=== PATIENT | male | born 1975 | race Caucasian/White ===

== ENCOUNTER 2018-05-01 11:53 | Emergency (ER) | payer SELFPAY ==
[~2018-05-01] VITALS: Ht 180.3 cm; Wt 122.5 kg
[~2018-05-01 11:53] MED LIST: CEPH500 PO; CITA20 PO; CODACE30 PO; CRUTCH3 USE; NAPR500 PO; SULTRIDS PO; TRAM50 PO
[2018-05-01] MEDS ORDERED: HYDR1TAB94 PO (12:54)
[2018-05-01] MEDS ORDERED: AMIT25 PO (12:54)
[2018-05-01] MEDS ORDERED: MELO7.5 PO (12:54)
[2018-05-01] MEDS ORDERED: VARE1 PO (12:55)
[2018-05-01] MEDS ORDERED: Ocuflox5 ML LEFTEAR (13:28)
== END 2018-05-01 13:33 | disposition home or self-care (01) ==
LOC: ER 11:53
DX: H92.02 Otalgia, left ear (principal); F32.9 Major depressive disorder, single episode, unspecified; Z88.0 Allergy status to penicillin; Z88.8 Allergy status to other drugs, medicaments and biological substances; Z88.5 Allergy status to narcotic agent; Z88.1 Allergy status to other antibiotic agents; Z79.899 Other long term (current) drug therapy; Z87.891 Personal history of nicotine dependence
CPT/HCPCS: 99282

== ENCOUNTER 2018-08-21 11:45 | Day surgery (SDC) | payer OTHER ==
[~2018-08-21] VITALS: Ht 175.3 cm; Wt 127.8 kg
[~2018-08-21 11:45] MED LIST changes: +AMIT25 PO; +HYDR1TAB94 PO; +MELO7.5 PO; +Mobic15 MG PO; +Ocuflox5 ML LEFTEAR; +VARE1 PO
--- NOTE | 2018-08-21 12:50 | NUR ---
08/21/18 1250 Tayler Berry ABRASION ON THE POSTERIOR ASPECT OF THE CALF
--- NOTE | 2018-08-21 15:02 | NUR ---
08/21/18 1502 Karina Dunaway FAMILKeY AT BEDSIDE; PT TALKATIVE, DB&C ON COMMAND. BREATHING THROUGH PAIN. MEDICATED, ICE APPLIED, TOLERATING PO INTAKE. DENIES NAUSEA.
--- NOTE | 2018-08-21 15:28 | NUR ---
08/21/18 1528 Malachi Richardson PATIENT REPORTS 10/10 PAIN, PER MD ORDERS GAVE IV PAIN MEDICATIONS, WILL CONTINUE TO MONITOR.
== END 2018-08-21 16:19 | disposition home or self-care (01) ==
LOC: ORSCSDS 11:45
DX: M65.872 Other synovitis and tenosynovitis, left ankle and foot (principal); E66.01 Morbid (severe) obesity due to excess calories; Z68.41 Body mass index [BMI] 40.0-44.9, adult
CPT/HCPCS: J1100; J1885; J3010; J7120

== ENCOUNTER 2022-06-25 13:26 | Emergency (ER) | payer BC ==
[~2022-06-25] VITALS: Ht 177.8 cm; Wt 127.0 kg
[~2022-06-25 13:26] MED LIST changes: +DOCU100 PO; +VICODIN HP 10-1 EAC1 PO
[2022-06-25 14:27] LABS: BASOPHILS ABSOLUTE AUTO 0.09 K/mm3 (0.00-0.23); BASOPHILS PERCENT AUTO 1 % (0-2); EOSINOPHILS ABSOLUTE AUTO 0.11 K/mm3 (0.00-0.68); EOSINOPHILS PERCENT AUTO 1 % (0-6); Hematocrit 46.1 % (37.0-53.0); Hemoglobin 15.1 g/dL (13.5-17.5); IMMATURE GRAN ABSOLUTE AUTO 0.07 K/mm3 (0.00-0.10); IMMATURE GRAN PERCENT AUTO 1 % (0-1); LYMPHOCYTES ABSOLUTE AUTO 2.86 K/mm3 (0.84-5.20); LYMPHOCYTES PERCENT AUTO 24 % (21-46); MONOCYTES PERCENT AUTO 6 % (4-13); Mean Corpuscular HGB 30.6 pg (26.0-34.0); Mean Corpuscular HGB Conc 32.8 g/dL (31.5-36.5); Mean Corpuscular Volume 93 fL (80-100); Mean Platelet Volume 10.5 fL (9.1-12.4); NEUTROPHILS ABSOLUTE AUTO 7.89 K/mm3 (1.96-9.15); NEUTROPHILS PERCENT AUTO 67 % (41-73); Platelet Count 185 K/mm3 (150-400); RDW Coefficient Variation 14.3 % (11.7-14.2); Red Blood Cell Count 4.94 M/mm3 (4.30-5.90); White Blood Cell Count 11.72 K/mm3 (4.00-11.30)
[2022-06-25 14:28] LABS: Albumin, Blood 3.4 g/dL (3.4-5.0); Albumin/Globulin Ratio 0.9 (0.8-1.8); Bilirubin, Total 0.4 mg/dL (0.1-1.0); Bun/Creatinine Ratio 16.7 (12.0-20.0); Calcium, Blood 8.8 mg/dL (8.5-10.1); Creatinine, Blood 0.96 mg/dL (0.60-1.20); Globulin, Blood 3.8 g/dL (2.2-4.0); Potassium, Blood 4.1 mmol/L (3.5-5.5); Total Protein, Blood 7.2 g/dL (6.4-8.2)
== END 2022-06-25 17:18 | disposition home or self-care (01) ==
LOC: ER 13:26
PROVIDERS: Physician Assistant
DX: I49.3 Ventricular premature depolarization (principal); Z79.899 Other long term (current) drug therapy; Z88.0 Allergy status to penicillin; Z88.5 Allergy status to narcotic agent; Z88.8 Allergy status to other drugs, medicaments and biological substances; Z88.1 Allergy status to other antibiotic agents; Z87.891 Personal history of nicotine dependence
CPT/HCPCS: 36415; 71046; 80053; 84484; 85025; 93005; 93010

== ENCOUNTER → 2023-01-25 | Outpatient (CLI) | payer BC ==
[~2023-01-25] MED LIST changes: +BUPR150ER PO; +Phentermine HCl15 MG PO
[2023-01-25 11:09] LABS: Alanine Aminotransfer (ALT/SGP 38 U/L (12-78); Albumin, Blood 3.4 g/dL (3.4-5.0); Alk Phos 136 U/L (50-136); Anion Gap 4 mmol/L (6-16); Aspartate Aminotrans (AST/SGOT 17 U/L (12-37); Bilirubin, Total 0.5 mg/dL (0.1-1.0); Blood Urea Nitrogen 11 mg/dL (8-24); Bun/Creatinine Ratio 12.7 (12.0-20.0); CHOL/HDL RATIO 3.8; CO2, Blood 28 mmol/L (21-32); Calcium, Blood 8.6 mg/dL (8.5-10.1); Chloride, Blood 111 mmol/L (98-108); Cholesterol 160 mg/dL (50-200); Creatinine, Blood 0.86 mg/dL (0.60-1.20); Globulin, Blood 3.3 g/dL (2.2-4.0); Glomerular Filtration Rate 108 (60-); Glucose, Blood 104 mg/dL (70-99); HDL Cholesterol 42 mg/dL (>39); LDL/HDL RATIO 2.3; Low Density Lipoprotein Chol 95 mg/dL (0-110); Potassium, Blood 4.2 mmol/L (3.5-5.5); Sodium, Blood 143 mmol/L (136-145); Total Protein, Blood 6.7 g/dL (6.4-8.2); Triglycerides 113 mg/dL (30-160); Very Low Density Lipoprot Chol 22 mg/dL (6-32)
== END | disposition home or self-care (01) ==
LOC: LAB SHORT 10:26 → LAB 10:26
PROVIDERS: Physician Assistant
DX: Z00.00 Encounter for general adult medical examination without abnormal findings (principal)
CPT/HCPCS: 36415; 80053; 80061